=== PATIENT | female | born 1990 | race Caucasian/White ===

== ENCOUNTER → 2016-11-25 | Outpatient (REF) | payer BC | LOC: M LAB REF 15:02 | PROVIDERS: ATTEND Advanced Practice Midwife | DX: Z12.4 Encounter for screening for malignant neoplasm of cervix (principal) ==

== ENCOUNTER → 2017-01-06 | Outpatient (CLI) | payer BC ==
[2017-01-06 13:47] LABS: BASO % 0.4 % (0.0-1.0); EOS # 0.1 10^3/uL (0.0-0.50); EOS % 1.1 % (0.0-3.0); IMMATURE GRANULOCYTE % 0.3 % (0-0); LYMPH # 2.2 10^3/uL (1.5-6.5); LYMPH % 21.4 % (24.0-44.0); MEAN CORPUSCULAR HEMOGLOBIN 30.3 pg (27.0-33.0); MEAN CORPUSCULAR HGB CONC 34.9 g/dl (32.0-36.5); MEAN CORPUSCULAR VOLUME 86.9 fl (80.0-96.0); MONO # 0.6 10^3/uL (0.0-0.8); MONO % 5.6 % (0.0-5.0); NEUTROPHILS # 7.3 10^3/uL (1.8-7.7); NEUTROPHILS % 71.2 % (36.0-66.0); PLATELET COUNT, AUTOMATED 224 10^3/uL (150-450); RED CELL DISTRIBUTION WIDTH 12.2 % (11.5-14.5); WHITE BLOOD COUNT 10.2 10^3/uL (4.0-10.0)
[2017-01-07 11:11] LABS: HBsAg Prenatal NEGATIVE (NEGATIVE)
== END ==
LOC: M SMT 08:58
PROVIDERS: ATTEND Advanced Practice Midwife
DX: Z3A.09 9 weeks gestation of pregnancy (principal)

== ENCOUNTER → 2017-03-17 | Outpatient (CLI) | payer BC | LOC: M RAD 10:41 | DX: Z36.2 Encounter for other antenatal screening follow-up (principal) | CPT/HCPCS: 76817 ==

== ENCOUNTER → 2017-05-05 | Outpatient (CLI) | payer BC | LOC: M RAD 08:38 | DX: Z36.9 Encounter for antenatal screening, unspecified (principal); Z3A.25 25 weeks gestation of pregnancy | CPT/HCPCS: 76816 ==

== ENCOUNTER → 2017-05-26 | Outpatient (CLI) | payer BC ==
[2017-05-26 13:54] LABS: HEMATOCRIT 31.5 % (36.0-47.0); HEMOGLOBIN 10.6 g/dl (12.0-16.0); MEAN CORPUSCULAR HEMOGLOBIN 30.2 pg (27.0-33.0); MEAN CORPUSCULAR HGB CONC 33.7 g/dl (32.0-36.5); MEAN CORPUSCULAR VOLUME 89.7 fl (80.0-96.0); PLATELET COUNT, AUTOMATED 188 10^3/uL (150-450); RED BLOOD COUNT 3.51 10^6/uL (4.00-5.40); RED CELL DISTRIBUTION WIDTH 12.3 % (11.5-14.5); WHITE BLOOD COUNT 12.5 10^3/uL (4.0-10.0)
[2017-05-26 14:26] LABS: GLUCOSE CHALLENGE TEST 1 HOUR 109 MG/DL (LESS THAN 140)
== END ==
LOC: M SMT 09:30
DX: Z34.82 Encounter for supervision of other normal pregnancy, second trimester (principal)
CPT/HCPCS: 82950

== ENCOUNTER 2017-07-07 08:02 | Inpatient (IN) | payer BC ==
[2017-07-07] MEDS: DOCUSATE SODIUM 100 MG CAP PO ×2 (09:00→20:31)
[2017-07-07] MEDS: PRENATAL VITAMINS CHEWABLE TABLET PO (09:00)
[2017-07-07] MEDS: LACTATED RINGER'S 1000 ML IV (09:30)
[2017-07-07] MEDS: BETAMETHASONE SOLUSPAN 6MG/ML INJ 5ML (J0702) IM (09:37)
[2017-07-07 09:46] LABS: HEMOGLOBIN 9.7 g/dl (12.0-15.5); MEAN CORPUSCULAR HEMOGLOBIN 27.6 pg (27.0-33.0); MEAN CORPUSCULAR HGB CONC 32.3 g/dl (32.0-36.5); MEAN CORPUSCULAR VOLUME 85.2 fl (80.0-96.0); PLATELET COUNT, AUTOMATED 148 10^3/uL (150-450); RED BLOOD COUNT 3.52 10^6/uL (4.00-5.40); RED CELL DISTRIBUTION WIDTH 13.6 % (11.5-14.5); WHITE BLOOD COUNT 11.4 10^3/uL (4.0-10.0)
[2017-07-07 10:02] LABS: INR 0.93; PROTHROMBIN TIME 12.5 SECONDS (12.4-14.5)
[2017-07-07 10:03] LABS: FIBRINOGEN 458 MG/DL (221-452)
[2017-07-07 10:31] LABS: ALBUMIN 2.6 GM/DL (3.2-5.2); ALBUMIN/GLOBULIN RATIO 0.74 (1.00-1.93); ALKALINE PHOSPHATASE 218 U/L (45-117); ALT/SGPT 15 U/L (12-78); ANION GAP 10 MEQ/L (8-16); AST/SGOT 22 U/L (7-37); BILIRUBIN,TOTAL 0.2 MG/DL (0.2-1.0); BLOOD UREA NITROGEN 4 MG/DL (7-18); CALCIUM LEVEL 7.9 MG/DL (8.5-10.1); CARBON DIOXIDE LEVEL 23 MEQ/L (21-32); CHLORIDE LEVEL 112 MEQ/L (98-107); CREATININE FOR GFR 0.62 MG/DL (0.55-1.30); GLOMERULAR FILTRATION RATE > 60.0 (>60); GLUCOSE, FASTING 86 MG/DL (70-100); LDH LACTATE DEHYDROGENASE 249 U/L (84-246); POTASSIUM SERUM 4.3 MEQ/L (3.5-5.1); SODIUM LEVEL 145 MEQ/L (136-145); TOTAL PROTEIN 6.1 GM/DL (6.4-8.2); URIC ACID 6.9 MG/DL (2.6-6.0)
[2017-07-07] MEDS: LR 1,000 ML IV ×2 (10:35→19:54)
[2017-07-07] MEDS ORDERED: BICITRA 30ML SOLN UDC As Ordered (10:43)
[2017-07-07 10:48] LABS: AMPHETAMINES URINE REFLEX NEGATIVE (NEGATIVE); BARBITURATES URINE REFLEX NEGATIVE (NEGATIVE); BENZODIAZEPINES URINE REFLEX NEGATIVE (NEGATIVE); CANNABINOIDS URINE REFLEX NEGATIVE (NEGATIVE); COCAINE METABOLITE URINE REFLE NEGATIVE (NEGATIVE); METHADONE URINE REFLEX NEGATIVE (NEGATIVE); OPIATES URINE REFLEX NEGATIVE (NEGATIVE); PHENCYCLIDINE URINE REFLEX NEGATIVE (NEGATIVE)
[2017-07-07] MEDS ORDERED: MORPHINE PRES-FREE INJ 10 MG/10 ML VIAL (J2274) As Ordered (10:50)
[2017-07-07] MEDS ORDERED: OXYTOCIN INJ 10 UNITS/ML VIAL (J2590) As Ordered ×3 (10:53)
[2017-07-07] MEDS ORDERED: METOCLOPRAMIDE INJ 10MG/2ML VIAL (J2765) As Ordered (10:58)
[2017-07-07] MEDS ORDERED: AZITHROMYCIN INJ 500MG VIAL (J0456) As Ordered (11:00)
[2017-07-07] MEDS ORDERED: ONDANSETRON 4MG/2ML VIAL (J2405) IV ×3 (11:02→12:45)
[2017-07-07] MEDS ORDERED: NALBUPHINE HCL 10 MG/ML AMP (J2300) IV ×2 (11:02→12:30)
[2017-07-07] MEDS ORDERED: NALOXONE INJ 0.4 MG/1 ML VIAL (J2310) IV ×2 (11:02)
[2017-07-07] MEDS ORDERED: METOCLOPRAMIDE INJ 10MG/2ML VIAL (J2765) IV (11:02)
[2017-07-07] MEDS ORDERED: PHENYLephrine HCL 500 MCG/5 ML (100MCG/ML) SYRINGE (J2370) As Ordered (11:18)
[2017-07-07] MEDS ORDERED: ONDANSETRON 4MG/2ML VIAL (J2405) As Ordered (11:22)
[2017-07-07 11:35] LABS: CORD GAS ABE A -8.8; CORD GAS HCO3 A 21.5 MEQ/L; CORD GAS O2 SAT A 20.4 %; CORD GAS PH A 7.125 UNITS; CORD GAS PO2 A 15.9 mmHg; CORD GAS SBC A 15.9 MEQ/L; CORD GAS TCO2 A 23.6 MEQ/L
[2017-07-07 11:38] LABS: CORD GAS ABE V -9.2; CORD GAS HCO3 V 21.7 MEQ/L; CORD GAS PCO2 V 70.9 mmHg; CORD GAS PH V 7.104 UNITS; CORD GAS SBC V 15.9 MEQ/L; CORD GAS TCO2 V 23.9 MEQ/L
[2017-07-07] MEDS ORDERED: LR 1,000 ML IV (12:30)
[2017-07-07] MEDS ORDERED: fentaNYL 100 MCG/2 ML INJECTION (J3010) IV (12:30)
[2017-07-07] MEDS ORDERED: KETOROLAC 30 MG/ML VIAL (J1885) IV (12:30)
[2017-07-07] MEDS ORDERED: MEPERIDINE INJ 25 MG/ML VIAL (J2175) IV (12:30)
[2017-07-07] MEDS ORDERED: HYDROmorphone HCL 1 MG/ML SYRINGE (J1170) IV (12:30)
[2017-07-07] MEDS ORDERED: PERCOCET 5MG/325MG TAB PO (12:30)
[2017-07-07] MEDS ORDERED: PROMETHAZINE 25 MG TAB PO (12:45)
[2017-07-07] MEDS ORDERED: OXYTOCIN 30 UNITS IN 0.9% NaCl 500ML IV BAG (J2590) As Ordered (12:59)
[2017-07-07] MEDS: MEASLES,MUMPS,RUBELLA VACCINE INJ (MMR-II) (90707) SC (13:01)
[2017-07-07] MEDS: RHOGAM 300 MCG (1500 IU) INJ (J2790) IM (13:01)
[2017-07-07] MEDS ORDERED: KETOROLAC 30 MG/ML VIAL (J1885) As Ordered (13:08)
[2017-07-07] MEDS: OXYTOCIN DRIP 30 UNITS in APPROPRIATE DILUENT 1 EA IV ×2 (13:10→19:54)
[2017-07-07] MEDS: KETOROLAC 30 MG/ML VIAL (J1885) IV ×2 (13:10→20:31)
[2017-07-07] MEDS ORDERED: CEFAZOLIN SOD 1 GM in APPROPRIATE DILUENT 1 EA IV (18:00)
[2017-07-07 22:25] LABS: TOTAL PROTEIN,RANDOM URINE 385.7 MG/DL (0.0-12.0)
[2017-07-08] MEDS: KETOROLAC 30 MG/ML VIAL (J1885) IV ×2 (02:07→08:08)
[2017-07-08] MEDS: OXYTOCIN DRIP 30 UNITS in APPROPRIATE DILUENT 1 EA IV ×5 (03:47→15:47)
[2017-07-08] MEDS: LR 1,000 ML IV ×2 (03:48→12:38)
[2017-07-08 06:45] LABS: HEMATOCRIT 22.3 % (36.0-47.0); MEAN CORPUSCULAR HEMOGLOBIN 27.7 pg (27.0-33.0); MEAN CORPUSCULAR HGB CONC 32.7 g/dl (32.0-36.5); MEAN CORPUSCULAR VOLUME 84.5 fl (80.0-96.0); PLATELET COUNT, AUTOMATED 127 10^3/uL (150-450); RED BLOOD COUNT 2.64 10^6/uL (4.00-5.40); RED CELL DISTRIBUTION WIDTH 13.6 % (11.5-14.5); WHITE BLOOD COUNT 23.9 10^3/uL (4.0-10.0)
[2017-07-08 06:46] LABS: HEMOGLOBIN 7.3 g/dl (12.0-15.5)
[2017-07-08] MEDS: DOCUSATE SODIUM 100 MG CAP PO ×2 (08:07→21:17)
[2017-07-08] MEDS: PRENATAL VITAMINS CHEWABLE TABLET PO (08:08)
[2017-07-08] MEDS: PERCOCET 5MG/325MG TAB PO ×2 (12:38→18:12)
[2017-07-08] MEDS: IBUPROFEN 800 MG TAB PO (15:46)
[2017-07-09] MEDS: IBUPROFEN 800 MG TAB PO ×2 (01:01→08:26)
[2017-07-09] MEDS: PERCOCET 5MG/325MG TAB PO (03:31)
[2017-07-09] MEDS: PRENATAL VITAMINS CHEWABLE TABLET PO (08:25)
[2017-07-09] MEDS: DOCUSATE SODIUM 100 MG CAP PO (08:25)
== END 2017-07-09 11:30 | disposition home or self-care (01) | DRG 540 ==
LOC: M LDO 08:02 → M LDI 09:09 → M OBS 14:19
PROC: 10D00Z1 Extraction of Products of Conception, Low, Open Approach (ICD-10-PCS; principal; 2017-07-07 10:56)
DX: O45.93 Premature separation of placenta, unspecified, third trimester (principal); Z37.0 Single live birth; Z3A.34 34 weeks gestation of pregnancy; O76 Abnormality in fetal heart rate and rhythm complicating labor and delivery

== ENCOUNTER → 2017-10-01 | Outpatient (REF) | payer BC | LOC: M LAB REF 19:27 | DX: N87.1 Moderate cervical dysplasia (principal); N87.0 Mild cervical dysplasia | CPT/HCPCS: 88304 ==

== ENCOUNTER → 2018-02-09 | Outpatient (REF) | payer BC ==
[2018-02-12 14:15] LABS: HPV HYBRID CAPTURE II Positive (Negative)
== END ==
LOC: M LAB REF 17:22
DX: N87.1 Moderate cervical dysplasia (principal)
CPT/HCPCS: G0123

== ENCOUNTER → 2018-08-10 | Outpatient (REF) | payer BC ==
[~2018-08-10] MED LIST: COLA100C5 PO; IBUP80TA PO; OMEP40CA2 PO; OXYC1TAB23 PO; PRENTAB9 PO
[2018-08-13 15:46] LABS: HPV HYBRID CAPTURE II Negative (Negative)
== END ==
LOC: M LAB REF 17:22
PROVIDERS: ATTEND Obstetrics & Gynecology
DX: Z12.4 Encounter for screening for malignant neoplasm of cervix (principal)
CPT/HCPCS: 87624; 88304; G0123

== ENCOUNTER → 2019-04-14 | Outpatient (REF) | payer BC ==
[~2019-04-14] MED LIST changes: -OMEP40CA2 PO; +OMEP40CA97 PO
== END ==
LOC: M SFHCWAGY 16:49
PROVIDERS: ATTEND Obstetrics & Gynecology
DX: Z87.410 Personal history of cervical dysplasia (principal); D26.0 Other benign neoplasm of cervix uteri
CPT/HCPCS: 87624; 88304; 88305; G0123

== ENCOUNTER 2020-04-27 11:17 | Day surgery (SDC) | payer BC ==
[~2020-04-27] VITALS: Ht 160 cm; Wt 63.7 kg
[~2020-04-27 11:17] MED LIST changes: +LIDOCAINE 2% 100MG/5ML SDV (FOR ANES.) As Ordered ONE; +MIDAZOLAM INJ 2MG/2ML VIAL (J2250 PER 1MG) As Ordered ONE; +fentaNYL 100 MCG/2 ML INJECTION (J3010) As Ordered ONE; +propofoL 200 MG/20 ML VIAL As Ordered ONE
--- OUTSIDE RECORDS SUMMARY | 2020-04-27 11:20 | CCD | Continuity of Care Document ---
Author Author Love HERNANDEZ Organization Unknown Address [address] [facility] [address] [place] [address] Phone [phone] Care Team Providers Care Security Public Safety Officer Name Role Phone Yessica Hernandez AUTM [phone] Problems Active Problems Provider Date Insomnia WES Jain Onset: 04/21/2019 Heart murmur WES Jain Onset: 04/21/2019 Anemia WES Jain Onset: 04/21/2019 Social History Type Date Description Comments Sex Unknown Tobacco Use Start: Unknown Never Smoked Cigarettes ETOH Use Occasionally consumes alcohol tw ice per month ETOH Use Denies alcohol use 04/26/20 Recreational Drug Use Denies Drug Use Tobacco Use Start: Unknown Patient has never smoked Exercise Type/Frequency Exercises sporadically Y oga at home Guns in Home Yes, Locked Up Allergies, Adverse Reactions, Alerts Active Allergies Reaction Severity Comments Date Penicillin Hives 04/21/2019 Erythromycin Nausea, vomiting severe 04/09 Medications Active Medications SIG Qnty Indications Ordering Provide r Date Unisom Sleepgels 50mg Capsules every night at bedtime as needed Sanjeev Bay MD 04/26 Slow Release Iron 45mg Tablets ER take one tablet by mouth daily. 30tabs Sanjeev Bay MD 11/2019 Vitamin Tablets 1 by mouth every day Unknown Immunizations Description No Information Available Vital Signs Date Vital Result Comment 04/26/2020 8:04am BP Systolic 90 mmHg RT Arm BP Diastolic 60 mmHg RT Arm Heart Rate 100 /min Height 63 inches 5'3" Weight 137.00 lb BMI (Body Mass Index) 24.3 kg/m2 04/21/2019 10:12am BP Systolic 98 mmHg RT Arm BP Diastolic 62 mmHg RT Arm Heart Rate 92 /min Height 63 inches 5'3" Weight 132.00 lb BMI (Body Mass Index) 23.4 kg/m2 Results Description No Information Available Procedures Description No Information Available Medical Devices Description No Information Available Encounters Description No Information Available Assessments Date Code Description Provider 04/26/2020 Z00.00 Encounter for [facility] adult medical examination without abnormal findings CHAZ JainP 04/26/2020 R01.1 Cardiac murmur, unspecified Nat brielle Hernandez, [facility] 04/26/2020 G47.00 Insomnia, unspecified Yessica Ma rra, [facility] 04/26/2020 D64.9 Anemia, unspecified Yessica Orozcor a, [facility] 04/26/2020 Z33.1 state, incidental Michael Hernandez, [facility] Plan of Treatment 04/26/2020 - WES Jain* Z00.00 Encounter for general adult medical examination without abnormal findings * R01.1 Cardiac murmur, unspecified * G47.00 Insomnia, unspecified * D64.9 Anemia, unspecified * Z33.1 state, incidental * All * New Medication:* Unisom Sleepgels 50 mg - every night at bedtime as needed Functional Status Description No Information Available Mental Status Description No Information Available Referrals Description No Information Available
--- OUTSIDE RECORDS SUMMARY | 2020-04-27 11:20 | CCD | Continuity of Care Document ---
Author Author Love HERNANDEZ Organization Unknown Address [address] [facility] [address] [place] [address] Phone [phone] Care Team Providers Care Liquor Commissioner Name Role Phone Yessica Hernandez AUTM [phone] Problems Active Problems Provider Date Insomnia WES [...] BMI (Body Mass Index) 23.4 kg/m2 Results Test Acquired Date Facility Test Result H/L Range Note Complete Blood Count 04/26/2020 [employer] [facility] Medical Device Assembler: [place] [address] [phone] WBC 7.6 x10*3/UL 4.1 - 10.9 RBC 4.43 x10*6/UL 4.20 - 6.30 Hemoglobin 13.9 g/dL 12.0 - 18.0 Hematocrit 38.5 % 37.0 - 51.0 MCV 86.9 fL 80.0 - 97.0 MCH 31.4 pg 26.0 - 32.0 MCHC 36.2 g/dL 31.0 - 38.0 RDW 12.2 % 11.6 - 13.7 PLT 227 x10*3/UL 140 - 440 MPV 10.6 FL 7.8 - 11.0 Lymph % 21.2 % 10.0 - 58.5 Mid % 5.4 % 1.7 - 9.3 Neut % 73.4 % 37.0 - 92.0 Lymph # 1.6 x10*3/UL 0.6 - 4.1 Mid # 0.4 x10*3/UL 0.1 - 0.6 Neut # 5.6 x10*3/UL 2.0 - 7.8 Comprehensive Chem Profile 04/26/2020 [employer] [facility] [place] Medical Device Assembler: [place] [address] [phone] Glucose 89 mg/dL 74 - 99 1 BUN 8 mg/dL 7 - 18 Creatinine 0.5 mg/dL Low 0.6 - 1.3 Sodium 139 mEq/L 136 - 145 Potassium 4.5 mEq/L 3.5 - 5.1 Chloride 103 mEq/L 98 - 107 Carbon Dioxide 24 mEq/L 21 - 32 Calcium 8.8 mg/dL 8.5 - 10.1 Alk. Phosphatase 79 mg/dL 46 - 116 Total Bilirubin 0.4 mg/dL 0.2 - 1.0 Ast (Sgot) 15 U/L 15 - 37 Alt (SGPT) 24 U/L 12 - 78 Albumin 3.9 g/dL 3.4 - 5.0 Total Protein 7.0 g/dL 6.4 - 8.2 A/G Ratio 1.26 CALC 1.00 - 1.90 GFR >= 60 mL/min >60 GFR >= 60 mL/min >60 2 Lipid Profile 04/26/2020 [facility] , Medical Device Assembler: Dr [place]je[place], [place] [id number] [phone] Cholesterol 133 mg/dL 131 - 200 Triglycerides 84 mg/dL 30 - 150 HDL Cholesterol 47 mg/dL 35 - 60 LDL (Calculated) 69 CALC 50 - 159 1 100-125 mg/dL PRE-DIABET ES/FASTING >126 mg/dL DIABETES/FASTING 2 CHRONIC KIDNEY DISEASE STAGI NG PER NKF STAGE I & II GFR >= 60 NORMAL TO MILDLY DECREASED STAGE III GFR 30-59 MODERATELY DECREASED STAGE IV GFR 15-29 SEVERELY DECREASED STAGE V GFR <15 VERY LITTLE GFR LEFT ESRD GFR <15 ON CONVENTIONS ASSISTANT Procedures Description No Information Available Medical Devices Description No Information Available Encounters Description No Information Available Assessments Date Code Description Provider 04/26/2020 Z00.00 Encounter for genera l adult medical examination without abnormal findings Yessica Hernandez, [facility] 04/26/2020 R01.1 Cardiac murmur, unspecified Nat brielle Hernandez, [facility] 04/26/2020 G47.00 Insomnia, unspecified Yessica Ma rra, [facility] 04/26/2020 D64.9 Anemia, unspecified Yessica Orozcor a, [facility] 04/26/2020 Z33.1 state, incidental WES Murrell Plan of Treatment Future Appointment(s):* 05/02/2021 8:00 am - WES Jain at [facility] 04/26/2020 - WES Jain* Z00.00 Encounter for general adult medical examination without abnormal findings* Comments:* Check CBC, CMP and lipids. Follow up annually and PRN. Normal exam and is healthy. * R01.1 Cardiac murmur, unspecified* Comments:* Did not have echocardiogram done due to COVID, will hold off at this time due to the . Continues to be asymptomatic. * G47.00 Insomnia, unspecified* Comments:* Using Unisom. Trazodone d/c due to . * D64.9 Anemia, unspecified* Comments:* Check CBC, expect anemia now due to . Is continued on PNV and does take SlowFe when able. * Z33.1 state, incidental* Comments:* Establishing with [facility] today, 9 weeks, planning for repeat . * All * New Medication:* Unisom Sleepgels 50 mg - every night at bedtime as needed * Comments:* Follow up with OB as scheduled. Follow up here in 1 year for routine follow up, sooner PRN. Follow up in one year with repeat labs at that time.Encouraged balanced diet, 4-5 servings of fresh fruits and vegetables daily. Recommended at least 30 minutes of exercise daily and eight 8 oz. glasses of water daily.SBE monthly.RTC PRN for acute illness. COVID precautions are discussed and social distancing/mask use/ frequent hand washing and sanitizing are encouraged. Functional Status Description No Information Available Mental Status Description No Information Available Referrals Description No Information Available
--- OUTSIDE RECORDS SUMMARY | 2020-04-27 11:21 | CCD ---
Author Author [facility] Organization [facility] Address Unknown Phone Unavailable Support Name Relationship Address Phone [place] Next Of Kin [address] [facility] [place] [address] [address] [place] [address] A[place]DAÑO Next Of Kin [address] [place] [address] [place] [address] Unavailable Re-disclosure Warning The records that you are about to access may contain information from federally-assisted alcohol or drug abuse programs. If such information is present, then the following federally mandated warning applies: This information has been disclosed to you from records protected by federal confidentiality rules (42 CFR part 2). The federal rules prohibit you from making any further disclosure of this information unless further disclosure is expressly permitted by the written consent of the person to whom it pertains or as otherwise permitted by 42 CFR part 2. A general authorization for the release of medical or other information is NOT sufficient for this purpose. The Federal rules restrict any use of the information to criminally investigate or prosecute any alcohol or drug abuse patient.The records that you are about to access may contain highly sensitive health information, the redisclosure of which is protected by Article 27-F of the [facility] Public Health law. If you continue you may have access to information: Regarding HIV / AIDS; Provided by facilities licensed or operated by the [facility] Office of Mental Health; or Provided by the [facility] Office for People With Developmental Disabilities. If such information is present, then the following [facility] mandated warning applies: This information has been disclosed to you from confidential records which are protected by state law. State law prohibits you from making any further disclosure of this information without the specific written consent of the person to whom it pertains, or as otherwise permitted by law. Any unauthorized further disclosure in violation of state law may result in a fine or penitentiary sentence or both. A general authorization for the release of medical or other information is NOT sufficient authorization for further disc losure. Allergies and Adverse Reactions Type Description Substance Reaction Status Data Source(s ) Erythromycin Erythromycin Erythromycin 500 MG Delayed Rele ase Oral Tablet Unknown Active eCW1 ([facility]) Penicillin G Sodium Penicillin G Sodium Penicillin G Sodium 562075 UNT/ML Injectable Solution Unknown Active eCW1 ([facility]) Family History Family Member Name Family Member Gender Family Member Status Date o f Status Description Data Source(s) Unknown Unknown Problem MEDENT ([facility], ) Encounters Encounter Providers Location Date Indications Data Source(s ) [address] [address] 04/14/2019 12:00:00 AM EST eCW1 ([facility]) [address] [address] 03/18/2019 12:00:00 AM EST eCW1 ([facility]) Medications Medication Brand Name Start Date Product Form Dose Route Admi nistrative Instructions Pharmacy Instructions Status Indications Reaction Description Data Source(s) Diphenhydramine Hydrochloride 50 MG Oral Capsule [Unis om Sleep] Unisom Sleepgels 04/26/2020 12:00:00 AM EST active MEDENT ([facility]) Slow Release Iron 05/16/2019 12:00:00 AM EDT ORAL active MEDENT ([facility]) Trazodone Hydrochloride 50 MG Oral Tablet Trazodone HCL 04/21/2019 12:00:00 AM EST ORAL active MEDENT ([facility]) Insurance Providers Payer name Policy type / Coverage type Policy ID Covered green party ID Covered green party's relationship to hussein Policy Hussein Plan Information [employer] [place] 302/307 [id number] SP [id number] [facility] Health Maintenance Organization (HMO) [id number] Self [id number] [employer] [place] 302/307 [id number] SP [id number] [facility] Health Maintenance Organization (HMO) [id number] Self [id number] [facility] Health Maintenance Organization (HMO) [id number] Self [id number] [facility] Health Maintenance Organization (HMO) [id number] Self [id number] [facility] Health Maintenance Organization (HMO) [id number] Self [id number] [facility] Health Maintenance Organization (HMO) [id number] Self [id number] [employer] B [id number] S [id number] [employer] [place] P[place] 302/307 [id number] SP [id number] SELF PAY O [id number] S [id number] [employer] [place] P[place] 302/307 [id number] SP [id number] BC[employer] OF [place] 306/806 [id number] SP [id number] [employer] OF [place] 306/806 [id number] SP [id number] [facility] Health Maintenance Organization (O) [id number] Self [id number] Problems, Conditions, and Diagnoses Code Display Name Description Problem Type Effective Dates Data Source(s) 068616157 Anemia Anemia Problem 04/21/2019 12:00:00 AM ES T MEDENT ([facility]) [id number] Heart murmur Heart murmur Problem 04/21/2019 12:00:00 A M EST MEDENT ([facility]) [id number] Insomnia Insomnia Problem 04/21/2019 12:00:00 AM ES T MEDENT ([facility]) Z87.410 [id number] Personal history of cervical dysplasia Pr oblem 04/14/2019 12:00:00 AM EST eCW1 ([facility]) Surgeries/Procedures Procedure Description Date Indications Data Source(s) URINE TEST 04/14/2019 12:00:00 AM EST eCW1 ([facility]) BX/CURETT OF CERVIX W/SCOPE 04/14/2019 12:00:00 AM EST eCW1 ([facility]) Results ID Date Data Source [id number] 04/26/2020 08:26:00 AM EST MEDENT ([facility]) Name Value Range Interpretation Code Description Data Pilar rce(s) Supporting Document(s) Triglyceride [Mass/volume] in Serum or Plasma 84 mg/dL 30-150 MEDENT ([facility]) Cholesterol [Mass/volume] in Serum or Plasma 133 mg/dL 131-200 MED[facility] ([facility]) Cholesterol in LDL [Mass/volume] in Serum or Plasma by calcu lation 69 CALC 50-159 MED[facility] ([facility]) Cholesterol in HDL [Mass/volume] in Serum or Plasma 47 mg/dL 35-60 MED[facility] ([facility]) ID Date Data Source [id number] 04/26/2020 08:26:00 AM EST MEDENT ([facility]) Name Value Range Interpretation Code Description Data Pilar rce(s) Supporting Document(s) Glucose [Mass/volume] in Serum or Plasma 89 mg/dL 74-99 MEDENT ([facility]) 100-125 mg/dL PRE-DIABETES/FASTING >126 mg/dL DIABETES/FASTING Urea nitrogen [Mass/volume] in Serum or Plasma 8 mg/dL 7-18 MED[facility] ([facility]) Creatinine 0.5 mg/dL 0.6-1.3 [facility] ([facility]) Chloride [Moles/volume] in Serum or Plasma 103 meq/L 98-107 MED[facility] ([facility]) Potassium [Moles/volume] in Serum or Plasma 4.5 meq/L 3.5-5.1 MEDENT ([facility]) Sodium [Moles/volume] in Serum or Plasma 139 meq/L 136-145 MED[facility] ([facility]) Calcium [Mass/volume] in Serum or Plasma 8.8 mg/dL 8.5-10.1 MED[facility] ([facility]) Carbon dioxide, total [Moles/volume] in Serum or Plasma 24 meq/L 21 -32 MED[facility] ([facility]) Total Bilirubin 0.4 mg/dL 0.2-1.0 MEDENT ([facility]) Alkaline phosphatase isoenzyme [Units/volume] in Serum or Pl asma 79 mg/dL 46-116 MED[facility] ([facility]) Aspartate aminotransferase [Enzymatic activity/volume] in Serum or Plasma 15 U/L 15-37 MED[facility] ([facility] ) Albumin [Mass/volume] in Serum or Plasma 3.9 g/dL 3.4-5.0 MEDENT ([facility]) Proteinase 3 Ab [Units/volume] in Serum 7.0 g/dL 6.4-8.2 MED[facility] ([facility]) Alanine aminotransferase [Enzymatic activity/volume] in Seru m or Plasma 24 U/L 12-78 [facility] Glomerular filtration rate/1.73 sq M pre dicted among blacks [Volume Rate/Area] in Serum or Plasma by Creatinine-based formula (MDRD) Laboratory test result [facility] <content>CHRONIC KIDNEY DISEASE STAGING PER NKF</content>
<content></content>
<content>STAGE I & II GFR >= 60 NORMAL TO MILDLY DECREASED</content>
<content>STAGE III GFR 30-59 MODERATELY DECREASED</content>
<content>STAGE IV GFR 15-29 SEVERELY DECREASED</content>
<content>STAGE V GFR <15 VERY LITTLE GFR LEFT</content>
<content>ESRD GFR <15 ON HEAD OF PHYSICS</content>
<content></content> A/G Ratio 1.26 CALC 1.00-1.90 [facility] Glomerular filtration rate/1.73 sq M pre dicted among non-blacks [Volume Rate/Area] in Serum or Plasma by Creatinine-based formula (MDRD) Laboratory test result [facility] ID Date Data Source [id number] 04/26/2020 08:26:00 AM EST [facility] ([facility]) Name Value Range Interpretation Code Description Data Pilar rce(s) Supporting Document(s) Leukocytes [#/volume] in Blood by Automated count 7.6 x10*3/UL 4.1-10 .9 [facility] ([facility]) Hemoglobin [Mass/volume] in Blood 13.9 g/dL 12.0-18.0 [facility] ([facility]) Hematocrit [Volume Fraction] of Blood by Automated count 38.5 % 3 7.0-51.0 MEDENT ([facility]) Erythrocytes [#/volume] in Blood by Automated count 4.43 x10*6/UL 4.2 0-6.30 MED[facility] ([facility]) MCV 86.9 fL 80.0-97.0 [facility] ([facility]) MCH 31.4 pg 26.0-32.0 [facility] ([facility]) Erythrocyte distribution width [Ratio] by Automated count 12.2 % 11.6-13.7 [facility] ([facility]) Platelets [#/volume] in Blood by Automated count 227 x10*3/UL 140-440 [facility] ([facility]) MCHC 36.2 g/dL 31.0-38.0 [facility] ([facility]) MPV 10.6 FL 7.8-11.0 [facility] ([facility]) Mid % 5.4 % 1.7-9.3 [facility] ([facility]) Lymph % 21.2 % 10.0-58.5 [facility] ([facility]) Neut % 73.4 % 37.0-92.0 [facility] ([facility]) Lymph # 1.6 x10*3/UL 0.6-4.1 [facility] ([facility]) Mid # 0.4 x10*3/UL 0.1-0.6 [facility] ([facility]) Neut # 5.6 x10*3/UL 2.0-7.8 MED[facility] ([facility]) ID Date Data Source [id number] 03/05/2020 12:00:00 AM EST [facility] Name Value Range Interpretation Code Description Data Pilar rce(s) Supporting Document(s) SARS coronavirus 2 RNA [Presence] in Res piratory specimen by MONTY with probe detection [facility] and reported by [facility]. ID Date Data Source [id number] 03/05/2020 12:00:00 AM EST [facility] Name Value Range Interpretation Code Description Data Pilar rce(s) Supporting Document(s) Carestart Rapid COVID Antigen Test [facility] This lab was reported by Katlyn lyn. ID Date Data Source [id number] 02/23/2020 12:00:00 AM EST [facility] Name Value Range Interpretation Code Description Data Pilar rce(s) Supporting Document(s) SARS-CoV-2 Ag [Presence] in Respiratory specimen by MONTY with probe detection [facility] This lab was ordered by [facility] and reported by [facility]. ID Date Data Source [id number] 04/21/2019 10:09:00 AM EST MEDENT ([facility]) Name Value Range Interpretation Code Description Data Pilar rce(s) Supporting Document(s) Thyrotropin [Units/volume] in Serum or Plasma by Detec tion limit <= 0.05 mIU/L <pending> MEDENT ([facility] ) ID Date Data Source Pathology Request For Service 04/14/2019 12:00:00 AM EST eCW 1 ([facility]) Name Value Range Interpretation Code Description Data Pilar rce(s) Supporting Document(s) GENITOURINARY eCW1 ([facility]) Procedure Vital Signs ID Date Data Source UNK Name Value Range Interpretation Code Description Data Source(s) Body mass index (BMI) [Ratio] 24.3 kg/m2 24.3 k g/m2 MEDENT ([facility]) Body weight 137.00 [lb_av] 137.00 [lb_av] [facility] Body height 63 [in_i] 63 [in_i] [facility] ([facility]) 5'3" Heart rate 100 /min 100 /min [facility] ([facility]) Diastolic blood pressure 60 mm[Hg] 60 mm[Hg] MEDENT ([facility]) RT Arm Systolic blood pressure 90 mm[Hg] 90 mm[Hg] M EDENT ([facility]) RT Arm Body mass index (BMI) [Ratio] 23.4 kg/m2 23.4 k g/m2 [facility]) Body weight 132.00 [lb_av] 132.00 [lb_av] MEDEN T ([facility]) Body height 63 [in_i] 63 [in_i] JAZIEL ([facility]) 5'3" Heart rate 92 /min 92 /min JAZIEL ([facility]) Diastolic blood pressure 62 mm[Hg] 62 mm[Hg] JAZIEL ([facility]) RT Arm Systolic blood pressure 98 mm[Hg] 98 mm[Hg] M EDDARIANA ([facility]) RT Arm Diastolic blood pressure 68 mm[Hg] 68 mm[Hg] eCW1 ([facility]) Systolic blood pressure 112 mm[Hg] 112 mm[Hg] e CW1 ([facility]) Body mass index (BMI) [Ratio] 24.48 kg/m2 24.48 kg/m2 [facility] ([facility]) Body height 63 [in_us] 63 [in_us] [facility] ([facility]) Body weight Measured 138.2 [lb_av] 138.2 [lb_av ] [facility] ([facility])
[2020-04-27] MEDS ORDERED: FERR325T82 PO (11:40)
[2020-04-27] MEDS ORDERED: UNIS25TA3 PO (11:40)
[2020-04-27] MEDS ORDERED: METHYLERGONOVINE MALEATE 0.2 MG/ML VIAL (J2210) As Ordered ONE (11:53)
[2020-04-27] MEDS ORDERED: LIDOCAINE 1% SDV 30ML VIAL As Ordered ONE (11:53)
[2020-04-27] MEDS ORDERED: ONDANSETRON 4MG/2ML VIAL As Ordered ONE (12:50)
[2020-04-27] MEDS ORDERED: dexameTHASONE 4 MG/ML 1ML VIAL (J1100 PER 1MG) As Ordered ONE (12:50)
[2020-04-27] MEDS ORDERED: KETOROLAC 60MG 2ML VIAL As Ordered ONE (12:54)
--- NOTE | 2020-04-27 13:13 | ROOPDOC ---
[facility] Report Of Operation Report of Operation DATE OF PROCEDURE: 04/27/20 PREPROCEDURE DIAGNOSES: embryonic demise at 9 weeks. POSTPROCEDURE DIAGNOSES: Same. PROCEDURE: D+E+C SURGEON: Mirian Castaneda MD ANESTHESIA: LMA ESTIMATED BLOOD LOSS: Approximately 100 mL. COMPLICATIONS: none. FINDINGS: Moderate POC's. PROCEDURE NOTE: DATE OF PROCEDURE: Patient was taken to the operating room where LMA anesthesia was induced. She was prepped draped sterile fashion in the dorsal lithotomy position. The bladder was emptied with a catheter. A Speculum was placed in the vagina. The anterior lip of the cervix was grasped with tenaculum. Cervix dilated with tapered dilators. A #9 mm suction curette was placed through the internal os. Suction device was activated and curette was gently rotated until products of conception were noted coming through the suction tubing. Sharp curettage was performed. Good hemostasis was noted. The uterine cavity was deemed to be empty. All instruments removed. Sponges and instrument counts correct. MIRIAN CASTANEDA MD Apr 27, 2020 13:13
[2020-04-27] MEDS ORDERED: LR 1,000 ML IV SCH ×2 (14:00→14:15)
[2020-04-27] MEDS ORDERED: ONDANSETRON 4MG/2ML VIAL IV PRN (14:00)
[2020-04-27] MEDS ORDERED: oxyCODONE 5MG TAB PO PRN (14:00)
[2020-04-27] MEDS ORDERED: fentaNYL 100 MCG/2 ML INJECTION (J3010) IV PRN (14:00)
[2020-04-27 14:35] VITALS: BP 100/60
[2020-04-27] MEDS ORDERED: DOXYCYCLINE HYCLATE 100MG TABLET PO ONE (15:00)
[2020-04-27] MEDS ORDERED: ACETAMINOPHEN 500 MG TAB PO ONE (15:00)
== END 2020-04-27 14:40 | disposition home or self-care (01) ==
LOC: M SDC 11:17
PROVIDERS: ATTEND Specialist
DX: O02.1 Missed abortion (principal); D64.9 Anemia, unspecified; K21.9 Gastro-esophageal reflux disease without esophagitis
CPT/HCPCS: 59812; 87798; 88305; J1100; J1885; J2250; J2405; J3010

== ENCOUNTER → 2020-08-16 | Outpatient (REF) | payer BC ==
[~2020-08-16] MED LIST changes: +FERR325T82 PO; -LIDOCAINE 2% 100MG/5ML SDV (FOR ANES.) As Ordered ONE; -MIDAZOLAM INJ 2MG/2ML VIAL (J2250 PER 1MG) As Ordered ONE; +UNIS25TA3 PO; -fentaNYL 100 MCG/2 ML INJECTION (J3010) As Ordered ONE; -propofoL 200 MG/20 ML VIAL As Ordered ONE
== END ==
LOC: M SFHCWAGY 18:50
PROVIDERS: ATTEND Obstetrics & Gynecology
DX: Z12.4 Encounter for screening for malignant neoplasm of cervix (principal)
CPT/HCPCS: 87624; G0123

== ENCOUNTER → 2021-01-17 | Outpatient (CLI) | payer BC ==
[~2021-01-17] MED LIST changes: +OMEP40CA4 PO; -OMEP40CA97 PO
[2021-01-17 14:18] LABS: HEMATOCRIT 37.4 % (36.0-47.0); HEMOGLOBIN 12.6 g/dl (12.0-15.5); MEAN CORPUSCULAR HEMOGLOBIN 31.2 pg (27.0-33.0); MEAN CORPUSCULAR HGB CONC 33.7 g/dl (32.0-36.5); MEAN CORPUSCULAR VOLUME 92.6 fl (80.0-96.0); PLATELET COUNT, AUTOMATED 200 10^3/uL (150-450); RED BLOOD COUNT 4.04 10^6/uL (4.00-5.40); WHITE BLOOD COUNT 8.7 10^3/uL (4.0-10.0)
[2021-01-17 16:41] LABS: GC DNA AMPLIFICATION NEGATIVE (NEGATIVE)
[2021-01-17 17:35] LABS: HEPATITIS C VIRUS ABY INDEX 0.1 INDEX (<0.8); HIV 1&2 SCREEN CENTAUR NEGATIVE (NEGATIVE)
== END ==
LOC: M PLALAB 09:55
PROVIDERS: ATTEND Advanced Practice Midwife
DX: O34.211 Maternal care for low transverse scar from previous cesarean delivery (principal); Z3A.00 Weeks of gestation of pregnancy not specified

== ENCOUNTER → 2021-02-28 | Outpatient (CLI) | payer BC ==
--- NOTE | 2021-02-28 08:38 | REP ---
INDICATION: ANATOMY COMPARISON: None. TECHNIQUE: Transabdominal obstetrical ultrasound with color Doppler evaluation. FINDINGS: Examination demonstrates a single live intrauterine in variable presentation. motion is identified by technologist. Placenta is noted posterior and grade 0 without evidence for placenta previa or abruption. Amniotic fluid volume is normal. Cervix measures 4.6 cm in length and appears closed.. Selected gestational age: 19 weeks 5 days with KALIA 07/20/2021. Gestational age by current measurements 19 weeks 3 days with KALIA 07/22/2021. FHR equals 147 beats per minute. Estimated weight 322 grams (59thpercentile). Anatomical assessment demonstrates normal structures including cranium, choroid plexus, cavum, cerebellum/posterior fossa, facial features, lungs, diaphragm, stomach, cord insertion/three-vessel cord, kidneys/bladder, spine, and extremities. IMPRESSION: 1. Single live intrauterine in variable presentation demonstrating appropriate estimated weight and growth. 2. Limited evaluation of the heart/ventricular outflow tracts. Remainder of the anatomical assessment is complete and normal. <Electronically signed by Jakob Man > 02/28/21 [id number]
== END ==
LOC: M WHC 06:49
PROVIDERS: ATTEND Specialist
DX: Z34.82 Encounter for supervision of other normal pregnancy, second trimester (principal); Z3A.19 19 weeks gestation of pregnancy

== ENCOUNTER → 2021-04-11 | Outpatient (CLI) | payer BC | LOC: M WHC 13:40 | PROVIDERS: ATTEND Specialist | DX: Z34.82 Encounter for supervision of other normal pregnancy, second trimester (principal); Z3A.25 25 weeks gestation of pregnancy ==

== ENCOUNTER → 2021-04-18 | Outpatient (CLI) | payer BC ==
[2021-04-18 13:25] LABS: HEMOGLOBIN 11.7 g/dl (12.0-15.5); MEAN CORPUSCULAR HEMOGLOBIN 32.4 pg (27.0-33.0); MEAN CORPUSCULAR HGB CONC 33.4 g/dl (32.0-36.5); PLATELET COUNT, AUTOMATED 204 10^3/uL (150-450); RED BLOOD COUNT 3.61 10^6/uL (4.00-5.40); WHITE BLOOD COUNT 12.1 10^3/uL (4.0-10.0)
[2021-04-18 15:08] LABS: GC DNA AMPLIFICATION NEGATIVE (NEGATIVE)
== END ==
LOC: M PLALAB 08:24
PROVIDERS: ATTEND Obstetrics & Gynecology
DX: O34.211 Maternal care for low transverse scar from previous cesarean delivery (principal); Z3A.00 Weeks of gestation of pregnancy not specified

== ENCOUNTER → 2021-06-21 | Outpatient (REF) | payer BC ==
[~2021-06-21] MED LIST changes: +ACET-897 PO; +FERR140T3 PO; +FOLI400T13 PO; +OMEP-173 PO; +OMEP10CASR PO; +PERCOCET PO; +ZYRTTAB8 PO
== END ==
LOC: M LAB REF 14:01
PROVIDERS: ATTEND Physician Assistant
DX: R50.9 Fever, unspecified (principal); R05.9 Cough, unspecified

== ENCOUNTER → 2021-06-27 | Outpatient (REF) | payer BC ==
[~2021-06-27] MED LIST changes: -ACET-897 PO; -FERR140T3 PO; -FOLI400T13 PO; -OMEP-173 PO; -OMEP10CASR PO; -PERCOCET PO; -ZYRTTAB8 PO
== END ==
LOC: M PLALAB 06:57
PROVIDERS: ATTEND Advanced Practice Midwife
DX: Z36.85 Encounter for antenatal screening for Streptococcus B (principal)

== ENCOUNTER 2021-07-03 08:15 | Inpatient (IN) | payer BC ==
[2021-07-03] VITALS (19 sets, daily range): BP systolic 105–152; BP diastolic 57–87
[~2021-07-03] VITALS: Ht 160 cm; Wt 77.4 kg
[~2021-07-03 08:15] MED LIST changes: +FERR140T3 PO; +OMEP10CASR PO; +ZYRTTAB8 PO
[2021-07-03] MEDS ORDERED: FOLI400T13 PO (08:43)
[2021-07-03] MEDS ORDERED: ACET-897 PO (08:43)
[2021-07-03] MEDS ORDERED: OMEP-173 PO (08:46)
[2021-07-03] MEDS ORDERED: HOME MED LIST COMPLETE! XX SCH (08:50)
[2021-07-03] MEDS ORDERED: OXYTOCIN INJ 10 UNITS/ML VIAL (J2590) IM PRN (09:30)
[2021-07-03] MEDS ORDERED: OXYTOCIN DRIP 30 UNITS in IV 1 EA IV PRN ×4 (09:30)
[2021-07-03] MEDS ORDERED: TRANEXAMIC ACID INJection 1,000 MG in NS 100 ML IV PRN (09:30)
[2021-07-03] MEDS ORDERED: LIDOCAINE 1% MDV 20ML VIAL INFIL PRN (09:30)
[2021-07-03 09:56] LABS: HEMATOCRIT 37.6 % (36.0-47.0); MEAN CORPUSCULAR HGB CONC 34.6 g/dl (32.0-36.5); MEAN CORPUSCULAR VOLUME 92.6 fl (80.0-96.0); PLATELET COUNT, AUTOMATED 181 10^3/uL (150-450); RED BLOOD COUNT 4.06 10^6/uL (4.00-5.40); WHITE BLOOD COUNT 14.6 10^3/uL (4.0-10.0)
[2021-07-03] MEDS: LR 1,000 ML IV SCH ×3 (13:29→16:28)
[2021-07-03] MEDS ORDERED: FENTANYL 2MCG/ML ROPIVACAINE 0.2% IN 0.9% NACL 100ML IVBAG As Ordered ONE (13:53)
[2021-07-03] MEDS ORDERED: LACTATED RINGER'S 1000 ML IV STA (15:17)
[2021-07-03] MEDS ORDERED: EPIDURAL/PCA KEYS XX PRN (15:20)
[2021-07-03] MEDS ORDERED: FENTANYL/ROPIVACAINE/NACL BAG 100 ML EPIDURAL SCH (15:20)
[2021-07-03] MEDS ORDERED: ONDANSETRON 4MG/2ML VIAL IV PRN ×4 (15:20→19:00)
[2021-07-03] MEDS ORDERED: REFRIGERATOR IV KEYS XX PRN (15:20)
[2021-07-03] MEDS ORDERED: EPIDURAL COMMENT XX SCH (15:20)
[2021-07-03] MEDS ORDERED: AZITHROMYCIN INJ 500 MG, VIAL MATE ADAPTER 1 EACH in NS 250 ML IV ONE (15:20)
[2021-07-03] MEDS ORDERED: ceFAZolin SOD 2 GM in IV 1 EA IV ONE (15:20)
[2021-07-03] MEDS ORDERED: diphenhydrAMINE 50MG/ML VIAL (J1200) IV PRN ×2 (15:20→19:00)
[2021-07-03] MEDS ORDERED: NALOXONE INJ 0.4MG/1ML VIAL (J2310 PER 1MG) IV PRN ×3 (15:20→19:00)
[2021-07-03] MEDS ORDERED: LACTATED RINGER'S 1000 ML IV PRN (15:20)
[2021-07-03] MEDS ORDERED: BICITRA 30ML SOLN UDC PO ONE (15:20)
[2021-07-03] MEDS ORDERED: ePHEDrine SULFATE 25 MG/5 ML(5MG/ML) SYRINGE IV PRN (15:20)
[2021-07-03] MEDS ORDERED: LIDOCAINE 2% W/EPINEPHRINE 20ML VIAL **PRES FREE As Ordered ONE (17:16)
[2021-07-03] MEDS ORDERED: OXYTOCIN INJ 10 UNITS/ML VIAL (J2590) As Ordered ONE (17:16)
[2021-07-03] MEDS ORDERED: PHENYLephrine 500MCG 5ML (100MCG/ML) SYRINGE As Ordered ONE (17:16)
[2021-07-03] MEDS ORDERED: ONDANSETRON 4MG/2ML VIAL As Ordered ONE (17:16)
[2021-07-03] MEDS ORDERED: MORPHINE PRES-FREE INJ 10 MG/10 ML VIAL As Ordered ONE (17:20)
[2021-07-03] MEDS ORDERED: KETOROLAC 60MG 2ML VIAL As Ordered ONE (17:25)
[2021-07-03] MEDS ORDERED: KETOROLAC 30 MG/ML 1ML VIAL IV PRN (17:26)
[2021-07-03] MEDS ORDERED: RHOGAM 300 MCG (1500 IU) INJ (J2790) IM SCH (18:00)
[2021-07-03] MEDS ORDERED: MEASLES,MUMPS,RUBELLA VACCINE INJ (MMR-II) (90707) SC SCH (18:00)
[2021-07-03] MEDS ORDERED: MOM 30ML SUSPENSION UDC PO PRN (18:00)
[2021-07-03] MEDS ORDERED: PERCOCET 5MG/325MG TAB PO PRN ×2 (18:00→18:50)
[2021-07-03] MEDS ORDERED: LR 1,000 ML IV SCH ×2 (18:00→18:50)
[2021-07-03] MEDS ORDERED: SIMETHICONE 80MG CHEW TAB PO PRN (18:00)
[2021-07-03] MEDS ORDERED: OXYTOCIN DRIP 30 UNITS in IV 1 EA IV SCH (18:00)
[2021-07-03] MEDS ORDERED: OXYTOCIN 30 UNITS IN 0.9% NaCl 500ML IV BAG (J2590) As Ordered ONE (18:22)
[2021-07-03] MEDS ORDERED: fentaNYL 100 MCG/2 ML INJECTION IV PRN (18:50)
[2021-07-03] MEDS ORDERED: METOCLOPRAMIDE INJ 10MG/2ML VIAL (J2765 PER 1) IV PRN (19:00)
[2021-07-03] MEDS: diphenhydrAMINE 50MG/ML VIAL (J1200) IV PRN (21:22)
[2021-07-03] MEDS: DOCUSATE SODIUM 100MG CAPSULE PO SCH (21:22)
[2021-07-04] MEDS: KETOROLAC 30 MG/ML 1ML VIAL IV SCH ×3 (00:07→12:34)
[2021-07-04 02:00] VITALS: BP 104/58
[2021-07-04] MEDS: diphenhydrAMINE 50MG/ML VIAL (J1200) IV PRN ×2 (04:36→12:40)
[2021-07-04 06:00] VITALS: BP 100/57
[2021-07-04 07:11] LABS: HEMATOCRIT 34.1 % (36.0-47.0); HEMOGLOBIN 11.4 g/dl (12.0-15.5); MEAN CORPUSCULAR HEMOGLOBIN 31.9 pg (27.0-33.0); MEAN CORPUSCULAR HGB CONC 33.4 g/dl (32.0-36.5); MEAN CORPUSCULAR VOLUME 95.5 fl (80.0-96.0); PLATELET COUNT, AUTOMATED 165 10^3/uL (150-450); RED BLOOD COUNT 3.57 10^6/uL (4.00-5.40); WHITE BLOOD COUNT 14.2 10^3/uL (4.0-10.0)
[2021-07-04] MEDS: DOCUSATE SODIUM 100MG CAPSULE PO SCH ×2 (08:59→20:29)
[2021-07-04] MEDS: PRENATAL VITAMINS CHEWABLE TABLET PO SCH (08:59)
[2021-07-04] MEDS ORDERED: PERCOCET PO (09:30)
[2021-07-04] MEDS ORDERED: COLA100C5 PO (09:30)
[2021-07-04] MEDS ORDERED: IBUP80TA PO (09:30)
[2021-07-04 10:00] VITALS: BP 103/64
[2021-07-04 14:00] VITALS: BP 103/67
[2021-07-04 18:00] VITALS: BP 107/65
[2021-07-04] MEDS: IBUPROFEN 800 MG TAB PO SCH (20:30)
[2021-07-04 22:00] VITALS: BP 101/62
[2021-07-05] MEDS: PERCOCET 5MG/325MG TAB PO PRN ×2 (00:04→09:58)
[2021-07-05 02:00] VITALS: BP 99/59
[2021-07-05] MEDS: IBUPROFEN 800 MG TAB PO SCH ×2 (04:14→11:43)
[2021-07-05 06:00] VITALS: BP 106/71
[2021-07-05] MEDS: DOCUSATE SODIUM 100MG CAPSULE PO SCH (07:33)
[2021-07-05] MEDS: PRENATAL VITAMINS CHEWABLE TABLET PO SCH (07:33)
[2021-07-05 10:00] VITALS: BP 136/68
== END 2021-07-05 13:05 | disposition home or self-care (01) | DRG 540 ==
LOC: M LDO 08:15 → M LDI 09:35 → M OBS 19:28
PROVIDERS: ADMIT Advanced Practice Midwife; ATTEND Advanced Practice Midwife
PROC: 10D00Z1 Extraction of Products of Conception, Low, Open Approach (ICD-10-PCS; principal; 2021-07-03 16:30)
DX: O34.211 Maternal care for low transverse scar from previous cesarean delivery (principal); O42.02 Full-term premature rupture of membranes, onset of labor within 24 hours of rupture; Z37.0 Single live birth; Z3A.37 37 weeks gestation of pregnancy; Z88.0 Allergy status to penicillin; O66.41 Failed attempted vaginal birth after previous cesarean delivery

== ENCOUNTER → 2022-05-29 | Outpatient (REF) | payer BC ==
[~2022-05-29] MED LIST changes: +ACET-897 PO; +FOLI400T13 PO; +OMEP-173 PO; +PERCOCET PO
== END ==
LOC: M SFHCWAGY 13:15
PROVIDERS: ATTEND Obstetrics & Gynecology
DX: Z12.4 Encounter for screening for malignant neoplasm of cervix (principal)
CPT/HCPCS: 87624; G0123

== ENCOUNTER → 2023-10-08 | Outpatient (REF) | payer BC ==
[2023-10-08 14:03] LABS: PERCENT SATURATION 29.1 % (13.2-45.0)
[2023-10-08 14:05] LABS: FERRITIN 41.4 NG/ML (7.3-270.7)
== END ==
LOC: M LAB REF 12:57
PROVIDERS: ATTEND Nurse Practitioner Family
DX: D64.9 Anemia, unspecified (principal)

== ENCOUNTER → 2024-10-13 | Outpatient (REF) | payer BC ==
[~2024-10-13] MED LIST changes: -FERR140T3 PO; +[UNRECOGNIZED DRUG - CODE] PO
[2024-10-13 12:59] LABS: IRON (FE) 66.0 UG/DL (50-170)
[2024-10-13 13:00] LABS: PERCENT SATURATION 21.8 % (13.2-45.0)
== END ==
LOC: M LAB REF 12:01
PROVIDERS: ATTEND Nurse Practitioner Family
DX: D50.9 Iron deficiency anemia, unspecified (principal)